=== PATIENT | female | born 1955 | race Caucasian/White ===

== ENCOUNTER → 2017-02-13 | Outpatient (CLI) | payer OTHER ==
[~2017-02-13] MED LIST: ADVIL200 MG PO; BONIVA150 MG PO; COLACE100 MG PO; DILAUDID 2MG(HYD2 MG PO; FISH OIL1000 MG PO; MELATONIN3 MG PO; MIRALAX17 GM PO; MYRBETRIQ50 MG PO; NEURONTIN100 MG PO; NEXIUM40 MG PO; PRINIVIL (ZESTR20 MG PO; TYLENOL EXTRA500 MG PO; VALIUM5 MG PO; VENLAFAXINE HC225 MG PO; VITAMIN A10000 UNIT PO; VITAMIN E400 UNI2 PO; XARELTO10 MG PO
== END | disposition disaster alternative care site (69) ==
LOC: GBCOE 09:00
DX: Z12.31 Encounter for screening mammogram for malignant neoplasm of breast (principal)
CPT/HCPCS: G0202

== ENCOUNTER → 2017-06-08 | Outpatient (CLI) | payer OTHER ==
--- NOTE | ~2017-06-08 | PUL ---
PATIENT'S NAME: MONICA HINKLE [facility] AGE: 62 Y [address] ROOM: [place] [address] LOCATION: [facility] ADMIT DATE: 06/08/2017 Pulmonary DISCHARGE DATE: FAMILY PHYSICIAN: NEYMAR SANTOYO MD ATTENDING PHYSICIAN: NEYMAR SANTOYO NAME OF PROCEDURE: Home sleep test DATE OF PROCEDURE: 06/08/2017 TECH: Peter Hussein [facility] SUMMARY: Patient underwent home sleep testing using a type III device and was studied for 6 hours 46 minutes. There were 19 apneas and 19 hypopneas for an overall apnea-hypopnea index essentially normal at 5.6 events per hour. Events that did occur were in the supine position. Oxygen saturations ranged from 84-93%. Saturations were below 88% for fewer than 5 minutes. Heart rate ranged from 45 to 98 beats per minute. IMPRESSION: No significant sleep apnea. PLAN: Patient will receive results from the ordering provider. MD DAVE BUI/ /[id number] dtt: 06/23/17 Sanjuana Nieves David E. dtd: 06/10/17 1431
== END | disposition disaster alternative care site (69) ==
LOC: GSLP 06-01 21:00
DX: G47.10 Hypersomnia, unspecified (principal)
CPT/HCPCS: G0399